=== PATIENT | female | born 1990 | race Hispanic/Latino ===

== ENCOUNTER → 2016-10-02 | Outpatient (CLI) | payer OTHER ==
[~2016-10-02] MED LIST: ACHD5005 PO; FRS325T PO; IBP600T1 PO; IBUP-1773 PO; PNV1TABL67 PO
--- NOTE | 2016-10-02 11:35 | Diagnostic Imaging Report ---
PROCEDURE: US PELVIC (NON OB). TECHNIQUE: Multiple real-time grayscale images were obtained over the pelvis in various projections transabdominally. INDICATION: Irregular intermenstrual bleeding. FINDINGS: The uterus is 11.3 x 5.5 x 3.8 cm. The endometrial stripe is 1.9 cm in thickness. No heterogeneity or internal vascularity is seen. There is no focal myometrial lesion seen. The right ovary is 3.9 x 3.4 x 2.5 cm. The left ovary is 5.4 x 4.1 x 2.3 cm. Arterial and venous waveforms are seen in both ovaries. IMPRESSION: Mild thickening of the endometrial stripe is seen. No heterogeneity or internal vascularity is seen. The etiology is indeterminate. This could be potentially normal for this patient. Correlate clinically and with followup exams. Also, rule out the possibility of early . Dictated by: Dictated on workstation # [id number]
== END ==
LOC: RAD 09:05
PROVIDERS: ATTEND Nurse Practitioner Family
DX: N92.1 Excessive and frequent menstruation with irregular cycle (principal)
CPT/HCPCS: 76856